=== PATIENT | male | born 1975 | race Caucasian/White ===

== ENCOUNTER 2020-07-07 13:03 | Outpatient (REF) | payer OTHER, SELFPAY | END 2020-07-07 13:04 | disposition home or self-care (01) | LOC: HO.LAB 13:03 | PROVIDERS: Visit Provider Internal Medicine | DX: Z20.828 Contact with and (suspected) exposure to other viral communicable diseases (principal) | CPT/HCPCS: C9803; U0003 ==

== ENCOUNTER 2024-06-09 14:44 | Outpatient (AMB) | payer OTHER, SELFPAY ==
--- NOTE | 2024-06-09 14:51 | MHC.OFFVIS ---
Vital Signs 06/09/24 14:54 Height 5 ft 11 in Weight 208 lb BMI 29.0 BP 110/60 Blood Pressure Location Lt brachial Position Sitting Pulse 76 Pulse Source Pulse Oximeter Pulse Oximetry (%) 94 Oxygen Delivery Method Room Air Intake Visit Reasons: copd Airline Ticket Agent Required: No Allergies No Known Allergies Allergy (Verified 06/09/24 14:51) HPI Comments Details: The patient is here for pulmonary evaluation. The patient is a 40-year-old gentleman with lifelong asthma. The patient has been on multiple inhalers throughout his life. He has been active though he continues to exercise regularly. He plays golf on a regular basis. He had been followed closely by local director of construction but now is out of his insurance coverage. Therefore he needed a new director of construction. He was referred to us. In the meantime the patient did have pulmonary function studies back in 02/13/2024 which I personally reviewed demonstrating a moderate obstruction consistent with uncontrolled asthma. He has significant small airways disease consistent with severe asthma. The patient also had evidence of air trapping consistent with small airways disease. In addition to that the patient had a chest x-ray was which was without any acute disease. He also had a CT scan of the chest that I do not have access to right now but per report he was told that it was okay. He continues to struggle with dyspnea on exertion. He has been on Trelegy 200 is been partially helpful. He does have a rescue inhaler available that he uses at times. Typically more than twice a week. At this point the patient does have severe uncontrolled asthma and will benefit from additional therapies. Therefore biologic therapies may be very reasonable for him. Will go ahead and request blood work at this time to see if he is candidate for biologics at this time. [facility] Medical History (Updated 06/09/24 @ 22:54 by Omar Huynh MD) Chronic allergic rhinitis Allergies Asthma Social History (Updated 06/09/24 @ 14:54 by NGOZI Wilcox) Patient Tobacco Use Status: Never used Tobacco Review of Systems Const Denies fever(s) and Denies night sweats ENT Reports nasal congestion Card Denies chest pain and Reports dyspnea on exertion Resp Reports cough, Reports dyspnea on exertion and Reports wheezing GI Reports no additional complaints Musc Reports no additional complaints Skin/Breast Denies rash Iftikhar/Lymph Reports no additional complaints Aller/Immun Reports wheezing Physical Exam Vital Signs: Last Vital Signs Pulse 76 06/09/24 14:54 BP 110/60 06/09/24 14:54 Pulse Ox 94 06/09/24 14:54 Oxygen Delivery Method Room Air 06/09/24 14:54 BMI result Body Mass Index 29.0 Const General: comfortable HEENT Head: Yes normocephalic Neck Neck: Yes supple Chest Chest palpation & inspection: normal inspection of the chest Resp Effort & Inspection: normal respiratory effort and prolonged expiratory phase Auscultation: diminished lung sounds Cardio Heart sounds: S1 normal heart sound present and S2 normal heart sound present GI Palpation (GI): Soft to palpation Skin General skin exam: no rashes or lesions noted Extrem General: Yes no clubbing, cyanosis or edema Assessment & Plan Assessment & Plan (1) Asthma: Code(s): J45.909 - Unspecified asthma, uncomplicated Category: Medical Qualifiers: Asthma severity: severe Asthma persistence: persistent Asthma complication type: uncomplicated Qualified Code(s): J45.50 - Severe persistent asthma, uncomplicated (2) Allergies: Code(s): T78.40XA - Allergy, unspecified, initial encounter Category: Medical Qualifiers: Encounter type: initial encounter Qualified Code(s): T78.40XA - Allergy, unspecified, initial encounter (3) Chronic allergic rhinitis: Code(s): J30.9 - Allergic rhinitis, unspecified Category: Medical Plan continue Trelegy RITIKA as needed lc doll Bloodwork Will benefit from starting biologic therapies, will decide based on bloodwork need to review CT chest F/U 3 months Orders: Orders Resp Allergy Profile Region I Today J45.909 - Unspecified asthma, uncomplicated, R91.1 - Solitary pulmonary nodule, T78.40XA - Allergy, unspecified, initial encounter Immunoglobulin E Today J45.909 - Unspecified asthma, uncomplicated, T78.40XA - Allergy, unspecified, initial encounter Erythrocyte Sedimentation Rate Today J45.909 - Unspecified asthma, uncomplicated, T78.40XA - Allergy, unspecified, initial encounter Complete Blood Count Auto Diff Today J45.909 - Unspecified asthma, uncomplicated, T78.40XA - Allergy, unspecified, initial encounter Coding Level of Care Code New Pt Level 4 (56046) Diagnoses Severe persistent asthma without complication J45.50 Asthma severity: severe Asthma persistence: persistent Asthma complication type: uncomplicated Allergy, initial encounter T78.40XA Encounter type: initial encounter Chronic allergic rhinitis J30.9 Time Spent (min) 33
[2024-06-09 14:54] VITALS: BP 110/60; PULSE 76; O2SAT 94; BMI 29.0
== END 2024-06-09 15:27 | disposition home or self-care (01) ==
PROVIDERS: PCP Internal Medicine; Visit Provider Hospitalist
DX: J45.50 Severe persistent asthma, uncomplicated (principal); T78.40XA Allergy, unspecified, initial encounter; J30.9 Allergic rhinitis, unspecified
CPT/HCPCS: 99204

== ENCOUNTER 2024-06-09 14:44 | Outpatient (REF) | payer OTHER, SELFPAY ==
[2024-06-09 15:40] LABS: MANUAL DIFF FLAG NO
[2024-06-09 17:14] LABS: Basophils Percent Auto 0.5 % (0-2); Eosinophils Absolute Auto 0.2 X10*3/uL (0.0-0.4); Eosinophils Percent Auto 1.8 % (0-4); Hemoglobin 14.6 g/dl (14.0-18.0); Imm Gran Abs Auto 0.03 X10*3/uL (0.00-0.03); Imm Gran Pct Auto 0.3 % (0.0-0.4); Lymphocytes Absolute Auto 2.5 X10*3/uL (1.2-4.9); Lymphocytes Percent Auto 28.6 % (20-40); Mean Corpuscular HGB Conc 33.2 g/dl (31.0-36.0); Mean Corpuscular Hemoglobin 31.5 pg (27.0-33.0); Mean Platelet Volume 11.8 fL (9.4-12.4); Monocytes Absolute Auto 0.9 X10*3/uL (0.1-1.2); Monocytes Percent Auto 10.5 % (2-11); Neutrophils Absolute Auto 5.1 x10*3/uL (2.0-8.3); Neutrophils Percent Auto 58.3 % (45-73); Platelet Count 210 X10*3/uL (160-400); Red Blood Count 4.63 X10*6/uL (4.60-5.80); Red Cell Distribution Width 13.3 % (11.0-16.0); White Blood Count 8.8 X10*3/uL (4.8-10.8)
[2024-06-09 18:16] LABS: Erythrocyte Sedimentation Rate 4 MM/HR (0-15)
[2024-06-10 14:09] LABS: Class Alternaria alternata 0; Class Aspergillus fumigatus 0; Class Bermuda Grass 0/1; Class Birch 0/1; Class Cat Dander 3; Class Cladosporium herbarum 0; Class Cockroach 2; Class Common Ragweed 0/1; Class Cottonwood 0/1; Class Derm. pterony 0/1; Class Dermatophagoides farinae 0/1; Class Dog Dander 3; Class Elm 0/1; Class Maple Box Elder 0/1; Class Mountain Cedar 0/1; Class Mouse Urine Protein 0; Class Mugwort 0/1; Class Oak 0/1; Class Penicillium crysogenum 0; Class Rough Pigweed 0/1; Class Sheep Sorrel 0/1; Class Sycamore 0/1; Class Timothy Grass 0/1; Class Walnut Tree 0/1; Class White Ash 0/1; Class White Mulberry 0/1; D001 IgE D pteronyssinus 0.26 kU/L; D002 - IgE D farinae 0.21 kU/L; E001 - IgE Cat Dander 6.52 kU/L; E005 - IgE Dog Dander 3.69 kU/L; E072-IgE Mouse Urine <0.10 kU/L; G006 - IgE Timothy Grass 0.19 kU/L; I006-IgE Cockroach, German 2.94 kU/L; Immunoglobulin E 74 kU/L (<OR=114); M001 IgE Penicillium chrysogen <0.10 kU/L; M002 - IgE Cladosporium herbar <0.10 kU/L; M003 - IgE Aspergillus fumigat <0.10 kU/L; M006 - IgE Alternaria alternat <0.10 kU/L; T001 IgE Maple/Box Elder 0.19 kU/L; T003 IgE Common Silver Birch 0.15 kU/L; T006 - IgE Cedar, Mountain 0.18 kU/L; T008 IgE Elm, American 0.21 kU/L; T011 - IgE Maple Leaf Sycamore 0.19 kU/L; T014 - IgE Cottonwood 0.19 kU/L; T070 - IgE White Mulberry 0.15 kU/L; W001 - IgE Ragweed, Short 0.21 kU/L; W006 - IgE Mugwort 0.14 kU/L; W014 IgE Pigweed, Common 0.17 kU/L; W018 IgE Sheep Sorrel 0.18 kU/L
== END 2024-06-09 14:45 | disposition home or self-care (01) ==
LOC: HO.LAB 14:44
PROVIDERS: PCP Internal Medicine; Visit Provider Hospitalist
DX: R91.1 Solitary pulmonary nodule (principal); J45.50 Severe persistent asthma, uncomplicated; T78.40XA Allergy, unspecified, initial encounter; J30.9 Allergic rhinitis, unspecified; X58.XXXA Exposure to other specified factors, initial encounter; Z79.899 Other long term (current) drug therapy
CPT/HCPCS: 36415; 82785; 85025; 85652; 86003